=== PATIENT | male | born 1960 | race Caucasian/White ===

== ENCOUNTER 2025-02-15 10:51 | Outpatient (OUT) | payer MEDICARE, SELFPAY ==
--- OUTSIDE RECORDS SUMMARY | 2025-02-15 10:59 | XMS_ITS | Clinical Summary ---
Author Organization [facility] Address [address] [facility] [place] [address] Care Team Providers Care Student Union Consultant Name Role Phone Leanne Barraza ECOLOGICAL RISK ASSESSOR-STICKER HAND Unavailable + Source Comments The following information is NOT included in Care Everywhere downloads:Psychiatric notes, ECG results, Cardiac Rehab notes, Pulmonary Function notes, data from [employer] (includes but not limited toPregnancy data,audiograms, eye exams, pre-surgical evaluation notes, well-child exam data).[facility] Allergies Active Allergy Reactions Criticality Noted Date Comments Penicillins 03/25/2023 Patient unsure of reaction Medications atorvastatin (LIPITOR) 40 mg tablet Take 1 Tablet by mouth at bedtime. 90 Tablet 3 03/28/2023 Active finasteride (PROSCAR) 5 MG tablet Take 1 Tablet by mouth daily. 30 Tablet 3 03/29/2023 Active tamsulosin (FLOMAX) 0.4 MG capsule Take 1 Capsule by mouth daily. 30 Capsule 03/29/2023 Active alfuzosin (UROXATRAL) 10 MG tablet Take 10 mg by mouth daily. 05/16/2022 Active dutaseride (AVODART) 0.5 MG capsule Take 0.5 mg by mouth daily. 05/16/2022 Active Active Problems Problem Noted Date Diagnosed Date Hyperbilirubinemia 03/26/2023 Primary hypertension 03/26/2023 Benign prostatic hyperplasia without lower urinary tract symptoms 03/26/2023 Choledocholithiasis 03/26/2023 E coli bacteremia 03/26/2023 Cholangitis 03/26/2023 Biliary obstruction 03/25/2023 Immunizations Immunization Administration Dates Next Due Influenza, unspecified formulation (CVX=88) 04/05,05/25/2020 Pneumococcal polysaccharide 23 Valent (PPSV23) (CVX=33) 08/11/2019 Social History Tobacco Use Types Packs/Day Years Used Date Smoking Tobacco: Every Day Cigarettes 2 16.9 Started: 03/06/2008 Smokeless Tobacco: Never Tobacco Cessation:Counseling Given: Yes Sex and Gender Information Value Date Recorded Sex Assigned at Not on file Legal Sex Male 11:29 AM EST Gender Identity Not on file Sexual Orientation Not on file Last Filed Vital Signs Vital Sign Reading Time Taken Comments Blood Pressure 137/70 07/03/2023 10:56 AM EST Pulse 77 07/03/2023 10:56 AM EST Temperature 36.5 C (97.7 F) 07/03/2023 10:56 AM EST Respiratory Rate 16 07/03/2023 10:56 AM EST Oxygen Saturation 96% 07/03/2023 10:56 AM EST Inhaled Oxygen Concentration - - Weight 103.9 kg (229 lb) 07/03/2023 8:04 AM EST Height 182.9 cm (6') 07/03/2023 8:04 AM EST Body Mass Index 31.06 07/03/2023 8:04 AM EST Plan of Treatment Health Maintenance Due Date Last Done Comments Colonoscopy 1959 Hepatitis C Antibody 1977 Tdap Booster 1977 Hepatitis A (HAV) Vaccine (o ptional start 19+ years) 1978 Cholesterol 1994 CRC Screening 2004 Cologuard (Stool DNA) 2004 FIT 2004 Shingles (RZV) Vaccine (1 of 2) 2009 Hepatitis B (HBV) Vaccine (o ptional start 60+ years) 2019 Pneumococcal Vaccine(s) (50+ yrs) (2 of 2 - PCV) 08/10/2020 08/11/2019 Basic Metabolic Panel 03/27/2024 03/27/2023, 023 Abdominal Aortic Aneurysm Imaging 2024 COVID-19 Vaccine ( - season) 2025 05/10/2021, 10/04/2020, 08/09/2020 Influenza Vaccine (#1) 2025 04/16/2021, 2020 RSV vaccine (adult) (1 - 1-d ose 75+ series) 2034 Medical Devices Implanted Type Area Railroad Firer Device Identifier Shelf Expiration Date Model / Serial / Lot Stnt Sinan 10mm 8.5fr 40mm 194cm [id number] - [id number] Implanted:Qty: 1 on 03/27/2023 by Dilip Morales MD at INPATIENT DEPARTMENTS N/A: [employer] 01/16/2025 [id number] / / [id number] Procedures Procedure Name Priority Date/Time Associated Diagnosis Comments BASIC METABOLIC PANEL Routine 03/27/2023 8:59 AM EST from Last 3 Months or Most Recently Relevant to Health Maintenance Results * (ABNORMAL) BASIC METABOLIC PANEL (03/27/2023 8:59 AM EST) Glucose 124(H) 74 - 109 mg/dL 03/27/2023 9:40 AM EST [facility] Sodium 139 136 - 145 mmol/L 03/27/2023 9:40 AM EST [facility] Comment:Note updated referen ce ranges. Potassium 3.7 3.5 - 5.0 mmol/L 03/27/2023 9:40 AM EST [facility] Comment: Note updated reference ranges. Note updated reference ranges. Carbon Dioxide 25 21 - 31 mmol/L 03/27/2023 9:40 AM EST [facility] Comment:Note updated referen ce ranges. Chloride 105 98 - 107 mmol/L 03/27/2023 9:40 AM EST [facility] Comment:Note updated referen ce ranges. Blood Urea Nitrogen 24 7 - 25 mg/dL 03/27/2023 9:40 AM EST [facility] Comment:Note updated referen ce ranges. Creatinine 0.76 0.70 - 1.30 mg/dL 03/27/2023 9:40 AM EST [facility] Comment:Note updated referen ce ranges. Calcium 7.8(L) 8.6 - 10.3 mg/dL 03/27/2023 9:40 AM EST [facility] Comment:Note updated referen ce ranges. Anion Gap 13 10 - 20 03/27/2023 9:40 AM EST [facility] Estimated GFR (CKD-EPI) 101 >=60 mL/min/1. 73sqm 03/27/2023 9:40 AM EST [facility] Comment: 2020 CKD EPI Equation using Creatinine without Race Comment: Estimated glomerular filtration rate (eGFR) is calculated without a race coefficient. Values should be interpreted in the context of the patient's full clinical presentation. Reference: 1. Jaime C, Jordan M, Jacqui BAKER, et al.. A Unifying Approach for GFR Estimation: Recommendations of the NKF-ASN Task Force on Reassessing the Inclusion of Race in Diagnosing Kidney Disease. Portuguese Journal of Kidney Diseases 202;79(2):268- 88.e1. 2. N Engl J Med 2021 Vol. 385 Issue 19 Pages 7640-9589 Blood BLOOD SPECIMEN / Unknown Venipuncture / Unknown 03/27/2023 8:59 AM EST 03/27/2023 9:07 AM EST Enrrique Nevers DO [address] [facility] Final Result [facility] [address] [place] [address] from Last 3 Months or Most Recently Relevant to Health Maintenance Insurance [facility] MEDICAID Advance Directives * Full Code (Latest Code Status on File) Date Activated Date Inactivated Comments 03/25/2023 5:16 PM 03/28/2023 2:13 PM Question Answer Comments Documentation of decision pr ocess for this code status: Discussed with patient or surrogate. This is the code status chosen by the patient/surrogate. Care Teams Student Union Consultant Relationship Specialty Start Date End Date Leanne Barraza APRN-BECKY [address] [place] [address] [facility] 06/08/23
--- OUTSIDE RECORDS SUMMARY | 2025-02-15 10:59 | XMS_ITS | Clinical Summary ---
Author Organization [facility] Address [address] [place] [address] Phone Care Team Providers Care Boiler Shop Supervisor Name Role Phone Unavailable Primary Care Provider Unavailabl e Social History Tobacco Use Types Packs/Day Years Used Date Smoking Tobacco: Never Assessed Sex and Gender Information Value Date Recorded Sex Assigned at Not on file Legal Sex Male 5:20 AM EST Gender Identity Not on file Sexual Orientation Not on file Plan of Treatment Not on file
--- OUTSIDE RECORDS SUMMARY | 2025-02-15 10:59 | XMS_ITS | Clinical Summary ---
Author Organization [facility] Address [address] [place] [address] Care Team Providers Care Check Out Clerk Name Role Phone Pari Justin FINANCIAL RESERVE CLERK Unavailable [phone] Allergies Active Allergy Reactions Criticality Noted Date Comments Penicillins Anaphylaxis,Unknown High 03/23/2023 Patient unsure of reaction Medications atorvastatin (Lipitor) 40 MG tablet Refills(s) 0 3 Active tamsulosin (Flomax) 0.4 MG 24 hr capsule Take 0.4 mg by mouth in the morning. 3 Active rosuvastatin (Crestor) 20 MG tablet 1 (one) time each day at the same time Active metFORMIN XR (Glucophage-XR) 500 MG 24 hr tablet 4 Active lisinopril 20 MG tablet 1 (one) time each day at the same time Active finasteride (Proscar) 5 MG tablet Take 5 mg by mouth in the morning. 3 Active predniSONE (Deltasone) 20 MG tabletIndication s:Contact dermatitis, unspecified contact dermatitis type, unspecified trigger 3 pills days 1 and 2, 2 pills days 3 and 4, 1 pill day 5 and 6, 1/2 pill days 7 and 8. 13 tablet 4 Active Additional Information Patient not taking.Reported on 12/30/2023 Family History Medical History Relation Name Comments No Known Problems Father No Known Problems Mother Relation Name Status Comments Father Mother Social History Tobacco Use Types Packs/Day Years Used Date Smoking Tobacco: Every Day Cigarettes Smokeless Tobacco: Never Tobacco Cessation:Ready to Q uit: Not Asked; Counseling Given: Not Answered Sex and Gender Information Value Date Recorded Sex Assigned at Not on file Legal Sex Male 11:15 PM EDT Gender Identity Not on file Sexual Orientation Not on file Last Filed Vital Signs Vital Sign Reading Time Taken Comments Blood Pressure 116/62 12/30/2023 9:17 AM EDT Pulse 74 12/30/2023 9:17 AM EDT Temperature 35.7 C (96.3 F) 12/30/2023 9:17 AM EDT Respiratory Rate - - Oxygen Saturation 96% 12/30/2023 9:17 AM EDT Inhaled Oxygen Concentration - - Weight 107 kg (235 lb) 12/30/2023 9:17 AM EDT Height 182.9 cm (6') 08/02/2021 12:00 PM EDT Body Mass Index 31.87 08/02/2021 12:00 PM EDT Plan of Treatment Health Maintenance Due Date Last Done Comments CT Colonography 1959 Colonoscopy 1959 Colorectal Cancer Screening 1959 FIT-DNA 1959 FIT 1959 FOBT 1959 Sigmoidoscopy 1959 Pneumococcal Vaccine: 65+ Ye ars (2 of 2 - PCV) 08/10/2020 08/11/2019 Influenza Vaccine (#1) 2025 3, 04/16/2021, 05/25/2020 Insurance [employer] MEDICAID Care Teams Check Out Clerk Relationship Specialty Start Date End Date Pari Justin, [place] [address] [facility] [address] [place] [address] PCP - [facility] DRAFTER LANDSCAPE 05/06/24
--- OUTSIDE RECORDS SUMMARY | 2025-02-15 10:59 | XMS_ITS | Clinical Summary ---
Author Organization [facility] Address [address] [place] [address], [address] [place] [address] Care Team Providers Care Dumpster Driver Name Role Phone Cirilo Jenkins MD Primary Care Provider [phone] Social History Tobacco Use Types Packs/Day Years Used Date Smoking Tobacco: Never Assessed Sex and Gender Information Value Date Recorded Sex Assigned at Not on file Legal Sex Male 5:32 AM EST Gender Identity Not on file Sexual Orientation Not on file Plan of Treatment Not on file Insurance [facility] [place] Care Teams Dumpster Driver Relationship Specialty Start Date End Date Cirilo Jenkins MD [address] [place] [address] PCP - General Internal Medicine 03/25/23
--- NOTE | 2025-02-15 11:05 | ECG_ITS ---
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 Measurements Intervals [place] Rate: 55 P: 62 [place]: 188 QRS: 17 QRSD: 108 T: 51 QT: 394 QTc: 377 Interpretive Statements SINUS BRADYCARDIA POSSIBLE RIGHT VENTRICULAR CONDUCTION DELAY [RSR (QR) IN V1/V2] Borderline ECG No previous ECG available for comparison Electronically Signed On 02-15-2025 12:58:24 EDT by HERBERT FITZGERALD M.D.
--- NOTE | 2025-02-15 11:50 | PM.PRESUREVA ---
History of Present Illness History of Present Illness Chief complaint: BPH with obstruction and prostate lesion Narrative: Patient presents for presurgical testing. Please see HPI from Dr. Hackett dated February 10, 2025. Review of Systems ROS Narrative Please see ROS from Dr. Hackett dated February 10, 2025. [facility] History (Updated 02/15/25 @ 11:24 by Azul Pate NP) Prediabetes ?R73.03 - Prediabetes (ICD-10) Overactive bladder ?N32.81 - Overactive bladder (ICD-10) Incomplete bladder emptying ?R33.9 - Retention of urine, unspecified (ICD-10) Hypertension ?I10 - Essential (primary) hypertension (ICD-10) Hyperlipidemia ?E78.5 - Hyperlipidemia, unspecified (ICD-10) GERD (gastroesophageal reflux disease) ?K21.9 - Gastro-esophageal reflux disease without esophagitis (ICD-10) Calculus of gallbladder ?K80.20 - Calculus of gallbladder without cholecystitis without obstruction (ICD-10) BPH with obstruction/lower urinary tract symptoms ?N40.1 - Benign prostatic hyperplasia with lower urinary tract symptoms (ICD-10) ?N13.8 - Other obstructive and reflux uropathy (ICD-10) Lesion of prostate ?N42.9 - Disorder of prostate, unspecified (ICD-10) Surgical History (Updated 02/15/25 @ 11:11 by Azul Pate NP) History of cholecystectomy ?Z90.49 - Acquired absence of other specified parts of digestive tract (ICD-10) H/O cystoscopy ?Z98.890 - Other specified postprocedural states (ICD-10) Family History (Updated 02/15/25 @ 11:24 by Azul Pate NP) Other Family history of diabetes mellitus Family history of hypertension Family history of myocardial infarction Social History (Updated 02/15/25 @ 11:21 by Azul Pate NP) Within the past year, how often did you have a drink containing alcohol: never Score interpretation: A score less than 4 is consistent with normal alcohol consumption. Smoking status: Current every day smoker What tobacco products do you use: cigarettes Packs per day: 2 Years smoked: 15 Smoking pack-years: 30.00 Non-prescribed substance use: denies use and former substance user Non-prescribed substance use details: sober x19 years Previous occupational history: Retired Highest level of school completed/degree received: high school graduate Meds Home Medications and Allergies Home Medications ?Medication ?Instructions ?Recorded ?Confirmed ?Type alfuzosin 10 mg tablet,extended 10 mg PO DAILY 02/15/25 02/15/25 History release 24 hr atorvastatin 40 mg tablet 40 mg PO DAILY 02/15/25 02/15/25 History dutasteride 0.5 mg capsule 0.5 mg PO DAILY 02/15/25 02/15/25 History lisinopril 20 mg tablet 20 mg PO DAILY 02/15/25 02/15/25 History metformin 500 mg tablet,extended 500 mg PO DAILY 02/15/25 02/15/25 History release 24 hr Allergies Allergy/AdvReac Type Severity Reaction Status Date / Time Penicillins Allergy Anaphylaxis Verified 02/15/25 11:17 Exam Narrative Exam Narrative: Constitutional: Awake, alert, comfortable, well-appearing, nontoxic, interactive, vital signs as charted Head: Normocephalic, atraumatic Neck: Supple, normal appearance, normal range of motion, no meningeal signs, no lymphadenopathy Respiratory: No respiratory distress, breath sounds clear Cardiovascular: Regular rate and rhythm, strong and regular heart tones Abdomen: Nontender, normal bowel sounds, soft, no CVA tenderness Musculoskeletal: Normal gait, no swelling or edema Skin: No rashes or induration, no lesions, only visible skin inspected Neuro: No neurological deficits, normal sensation Psychiatric: Oriented ?3, normal affect Assessment and Plan Assessment and Plan (1) Lesion of prostate: (2) BPH with obstruction/lower urinary tract symptoms: Plan Cystoscopy/prostate lesion removal and TURP scheduled with Dr. Hackett February 25, 2025.
[2025-02-15 12:06] LABS: Hematocrit 41.8 % (42.0-54.0); Hemoglobin 14.2 g/dL (14.0-18.0); Immature Granulocytes Abs Auto 0.05 10^3/uL (0.00-0.03); Immature Granulocytes Pct Auto 0.6 % (0.0-0.5); Lymphocytes Absolute Auto 1.3 10^3/uL (1.2-3.8); Mean Corpuscular HGB Conc 34.0 g/dL (29.9-35.2); Mean Corpuscular Hemoglobin 29.6 pg (25.9-34.0); Mean Corpuscular Volume 87.3 fL (80.0-94.0); Platelet Count 246 10^3/uL (150-450); Red Blood Count 4.79 10^6/uL (4.70-6.10); White Blood Count 9.0 10^3/uL (4.0-11.0)
[2025-02-15 12:22] LABS: INR 1.02; Partial Thromboplastin Time 28.2 sec (22.3-36.2); Prothrombin Time 10.8 sec (9.0-11.6)
[2025-02-15 12:25] LABS: Anion Gap 12.9; Blood Urea Nitrogen 13.0 mg/dL (7.0-18.0); Calcium 9.2 mg/dL (8.5-10.1); Carbon Dioxide 26.4 mmol/L (21.0-32.0); Chloride 105 mmol/L (98-107); Estimated GFR (African America >60 (>=60 mL/min/1.73m^2); Estimated GFR (Non-African Ame >60 (>=60 mL/min/1.73m^2); Glucose 104 mg/dL (74-106); Potassium 4.3 mmol/L (3.5-5.1); Sodium 140 mmol/L (136-145)
== END 2025-02-15 10:52 | disposition home or self-care (01) ==
PROVIDERS: Visit Provider Urology
DX: Z01.810 Encounter for preprocedural cardiovascular examination (principal); Z01.812 Encounter for preprocedural laboratory examination; Z01.818 Encounter for other preprocedural examination; N42.89 Other specified disorders of prostate
CPT/HCPCS: 36415; 80048; 85025; 85610; 85730; 93005; G0463

== ENCOUNTER 2025-02-25 09:34 | Day surgery (SDC) | payer MEDICARE, SELFPAY ==
[2025-02-15 11:41] VITALS: BP 114/75; PULSE 66; TEMP 36.4; O2SAT 96; BMI 31.6
[2025-02-25] VITALS (15 sets, daily range): BP systolic 87–126; BP diastolic 47–75; PULSE 55–92; TEMP 36.3–36.9; O2SAT 92–99; BMI 31.1
--- OUTSIDE RECORDS SUMMARY | 2025-02-25 09:37 | XMS_ITS | Clinical Summary ---
Author Organization [facility] Address [address] [place] [address] Care Team Providers Care Electricians Top Helper Name Role Phone Pari Justin CDL SERVICE TECHNICIAN Unavailable [phone] Allergies Active AllergyReactionsCriticalityNoted DateCommentsPenicillinsAnaphylaxis, YqwsahpQixt35/18/2023 Patient unsure of reaction Medications MedicationSigDispense QuantityRefillsLast FilledStart DateEnd DateStatus atorvastatin (Lipitor) 40 MG tablet Refills(s) ctive tamsulosin (Flomax) 0.4 MG 24 hr capsule Take 0.4 mg by mouth in the morning.03/29/2023ctive rosuvastatin (Crestor) 20 MG tablet 1 (one) time each day at the same timeActive metFORMIN XR (Glucophage-XR) 500 MG 24 hr tablet 11/24/2023ctive lisinopril 20 MG tablet 1 (one) time each day at the same timeActive finasteride (Proscar) 5 MG tablet Take 5 mg by mouth in the morning.03/29/2023ctive predniSONE (Deltasone) 20 MG tablet Indications:Contact dermatitis, unspecified contact dermatitis type, unspecified trigger3 pills days 1 and 2, 2 pills days 3 and 4, 1 pill day 5 and 6, 1/2 pill days 7 and 8. 13 tablet 12/24/2023ctive Additional Information Patient not taking.Reported on 12/30/2023 Family History Medical HistoryRelationNameCommentsNo Known ProblemsFatherNo Known Problems MotherRelationNameStatusCommentsFatherMother Social History Tobacco UseTypesPacks/DayYears UsedDateSmoking Tobacco: Every DayCigarettes Smokeless Tobacco: Never Tobacco Cessation:Ready to Q uit: Not Asked; Counseling Given: Not Answered Sex and Gender InformationValueDate RecordedSex Assigned at BirthNot on file Legal GgtPbrl22 11:15 PM EDTGender IdentityNot on fileSexual Orientation Not on file Last Filed Vital Signs Vital SignReadingTime TakenCommentsBlood Iutoeelx758/6208 9:17 AM EDT Vusfc197512/30/2023 9:17 AM YSODmmpjhwzkda21.7 ??C (96.3 ??F)12/30/2023 9:17 AM EDTRespiratory Rate--Oxygen Fuyfsnligy26%12/30/2023 9:17 AM EDTInhaled Oxygen Concentration--Dubooe418 kg (235 lb)12/30/2023 9:17 AM DHCMdykbs703.9 cm (6') 08/02/2021 12:00 PM EDTBody Mass Index31.8708/02/2021 12:00 PM EDT Plan of Treatment Health MaintenanceDue DateLast DoneCommentsCT Sworzqjvwwjm14/06/1960Colonoscopy 1959Colorectal Cancer Ednkuwjwg75/06/1960FIT-DNA1959FIT1959 FOBT1959 1705Zwwjjwbkkdhey91/06/1960Pneumococcal Vaccine: 65+ Years (2 of 2 - PCV)/11/2019Influenza Vaccine (#1), 04/16/2021, 05/25/2020 Insurance Care Teams Team MemberRelationshipSpecialtyStart DateEnd Date Pari Justin NP [address] [place] [address] [facility]05/06/24
--- OUTSIDE RECORDS SUMMARY | 2025-02-25 09:38 | XMS_ITS | Clinical Summary ---
Author Organization [facility] Address [address] [facility] [place] [address] Phone Care Team Providers Care Network Cabler Name Role Phone Unavailable Primary Care Provider Unavailabl e Social History Tobacco UseTypesPacks/DayYears UsedDateSmoking Tobacco: Never AssessedSex and Gender InformationValueDate RecordedSex Assigned at BirthNot on fileLegal Sex Male03/31/2022 5:20 AM ESTGender IdentityNot on fileSexual OrientationNot on file Plan of Treatment Not on file
--- OUTSIDE RECORDS SUMMARY | 2025-02-25 09:38 | XMS_ITS | Clinical Summary ---
Author Organization [facility] Address [address] [place] [address], [address] [place] [address] Care Team Providers Care Pediatric Allergist Name Role Phone Cirilo Jenkins MD Primary Care Provider [phone] Social History Tobacco UseTypesPacks/DayYears UsedDateSmoking Tobacco: Never AssessedSex and Gender InformationValueDate RecordedSex Assigned at BirthNot on fileLegal Sex Male03/25/2023 5:32 AM ESTGender IdentityNot on fileSexual OrientationNot on file Plan of Treatment Not on file Insurance Care Teams Team MemberRelationshipSpecialtyStart DateEnd Date Cirilo Jenkins MD [address] [place] [address] PCP - GeneralInternal Qhdiweek31/20/23
--- OUTSIDE RECORDS SUMMARY | 2025-02-25 09:38 | XMS_ITS | Clinical Summary ---
Author Organization [facility] Address [address] [facility] [place] [address] Care Team Providers Care Wet Wash Assembler Name Role Phone Leanne Barraza SOLAR CONSULTANT-SUPERINTENDENT LOCAL Unavailable + Source Comments The following information is NOT included in Care Everywhere downloads:Psychiatric notes, ECG results, Cardiac Rehab notes, Pulmonary Function notes, data from SmartForms (includes but not limited toPregnancy data,audiograms, eye exams, pre-surgical evaluation notes, well-child exam data).[facility] Allergies Active AllergyReactionsCriticalityNoted AeobOjifrzdpHwwdryjndko98/20/2023 Patient unsure of reaction Medications MedicationSigDispense QuantityRefillsLast FilledStart DateEnd DateStatus atorvastatin (LIPITOR) 40 mg tablet Take 1 Tablet by mouth at bedtime. 90 Tablet ctive finasteride (PROSCAR) 5 MG tablet Take 1 Tablet by mouth daily. 30 Tablet ctive tamsulosin (FLOMAX) 0.4 MG capsule Take 1 Capsule by mouth daily. 30 Capsule 03/29/2023ctive alfuzosin (UROXATRAL) 10 MG tablet Take 10 mg by mouth daily.05/16/2022ctive dutaseride (AVODART) 0.5 MG capsule Take 0.5 mg by mouth daily.05/16/2022ctive Active Problems ProblemNoted DateDiagnosed TajeLwjxaomcizhaqosvry04/21/2023rimary hypertension 03/26/2023enign prostatic hyperplasia without lower urinary tract symptoms 03/26/20236516Mwvfysgsfnoqsrqgpbb38/21/2023E coli /21/2023holangitis 03/26/2023iliary rlpyjyapcli37/20/2023 Immunizations ImmunizationAdministration DatesNext DueInfluenza, unspecified formulation (CVX=88)04/16/2021,1Pneumococcal polysaccharide 23 Valent (PPSV23) (CVX=33)08/11/2019 Social History Tobacco UseTypesPacks/DayYears UsedDateSmoking Tobacco: Every QjvGcktmzgmns810 Started: 03/06/2008Smokeless Tobacco: Never Tobacco Cessation:Counseling Given: Yes Sex and Gender InformationValueDate RecordedSex Assigned at BirthNot on file Legal KxoEzsl04/20/2023 11:29 AM ESTGender IdentityNot on fileSexual Orientation Not on file Last Filed Vital Signs Vital SignReadingTime TakenCommentsBlood Cyzyommy249/70007/03/2023 10:56 AM EST Yziee968707/03/2023 10:56 AM QSYJacijvmfvam74.5 ??C (97.7 ??F)07/03/2023 10:56 AM ESTRespiratory Dbcs034507/03/2023 10:56 AM ESTOxygen Ubhuohmmfv02%07/03/2023 10:56 AM ESTInhaled Oxygen Concentration--Ggsspx279.9 kg (229 lb)07/03/2023 8:04 AM YOTVrziam304.9 cm (6')07/03/2023 8:04 AM ESTBody Mass Index31.0607/03/2023 8:04 AM EST Plan of Treatment Health MaintenanceDue DateLast MhwaWjlmktezDxeqzmrbkwj61/06/1960Hepatitis C Hxxogowi35/06/1978Tdap Mmzqhas1306/11/1977Hepatitis A (HAV) Vaccine (optional start 19+ years)06/11/19783534Vpxqdsyovhx09/06/1995CRC Hnvjecslx48/06/2005Cologuard (Stool DNA)2004FIT2004Shingles (RZV) Vaccine (1 of 2)2009 Hepatitis B (HBV) Vaccine (optional start 60+ years)2019Pneumococcal Vaccine(s) (50+ yrs) (2 of 2 - PCV)Basic Metabolic Panel , 3Abdominal Aortic Aneurysm Hnmlxrj1006/11/2024 COVID-19 Vaccine ( season)/09/2021, 10/04/2020, 08/09/2020Influenza Vaccine (#1)512/04/2021, 05/25/2020SV vaccine (adult) (1 - 1-dose 75+ series)2034 [employer] Devices ImplantedTypeAreaManufacturerDevice IdentifierShelf Expiration DateModel / Serial / LotStnt Sinan 10mm 8.5fr 40mm 194cm Ea1 [id number] - [id number] Implanted:Qty: 1 on 03/27/2023 by Dilip Morales MD at INPATIENT DEPARTMENTSN/A: [employer] Ftnbbvrkbk08/13/[id number] / / [id number] Procedures Procedure NamePriorityDate/TimeAssociated DiagnosisCommentsBASIC METABOLIC PANEL Ixtkshb6403/27/2023 8:59 AM EST from Last 3 Months or Most Recently Relevant to Health Maintenance Results * (ABNORMAL) BASIC METABOLIC PANEL (03/27/2023 8:59 AM EST)ComponentValueRef RangeTest MethodAnalysis TimePerformed AtPathologist CkuzusflwQamgnvd324(H)74 - 109 mg/dL03/27/2023 9:40 AM [facility] DSKXYWCKGLYtkstz631498 - 145 mmol/L105/27/2022 9:40 AM [facility] PATHOLOG[facility] LABORATORYComment:Note updated reference ranges.Potassium3.73.5 - 5.0 mmol/L105/27/2022 9:40 AM [facility] PATHOLOG[facility] LABORATORYComment: Note updated reference ranges. Note updated reference ranges. Carbon Yzyngwm1583 - 31 mmol/L105/27/2022 9:40 AM [facility] Comment:Note updated reference ranges.Gvbkkama82421 - 107 mmol/L105/27/2022 9:40 AM [facility] PATHOLOG[facility] LABORATORYComment:Note updated reference ranges.Blood Urea Aosdrizk299 - 25 mg/dL03/27/2023 9:40 AM [facility] PATHOLOG[facility] LABORATORYComment:Note updated reference ranges.Creatinine0.760.70 - 1.30 mg/dL03/27/2023 9:40 AM EST [facility] PATHOLOG[facility] LABORATORYComment:Note updated reference ranges.Calcium7.8(L)8.6 - 10.3 mg/dL03/27/2023 9:40 AM [facility] PATHOLOG[facility] LABORATORYComment:Note updated reference ranges.Anion Zpd3049 - 9:40 AM [facility] PATHOLOG[facility] LABORATORYEstimated GFR (CKD-EPI)101>=60 mL/min/1.42ndf6505/27/2022 9:40 AM [facility] PATHOLOGY LABORATORYComment: 2020 CKD EPI Equation using Creatinine without Race Comment: ??Estimated glomerular filtration rate (eGFR) is calculated without a race coefficient. Values should be interpreted in the context of the patient's full clinical presentation. Reference: 1. Jaime C, Jordan M, Jacqui BAKER, et al.. A Unifying Approach for GFR Estimation: Recommendations of the NKF-ASN Task Force on Reassessing the Inclusion of Race in Diagnosing Kidney Disease. AmericanJournal of Kidney Diseases 2021;79(2):268-88.e1. 2. N Engl J Med 1 Vol. 385 Issue 19 Pages 0365-0308 Specimen (Source)Anatomical Location / LateralityCollection Method / Volume Collection TimeReceived TimeBloodBLOOD SPECIMEN / UnknownVenipuncture / Unknown 03/27/2023 8:59 AM EST03/27/2023 9:07 AM EST Narrative Authorizing ProviderResult TypeResult StatusBenjamin Nevers DO98 GENERAL LAB Final ResultPerforming OrganizationAddressCity/State/ZIP CodePhone Number [facility] [address] [place] [address] from Last 3 Months or Most Recently Relevant to Health Maintenance Insurance Advance Directives * Full Code (Latest Code Status on File) Date ActivatedDate PomjutilpdbHlvxlugv81/20/2023 5:16 PM03/28/2023 2:13 PM QuestionAnswerCommentsDocumentation of decision process for this code status:* Discussed with patient or surrogate.?? This is the code status chosen by the patient/surrogate. Care Teams Team MemberRelationshipSpecialtyStart DateEnd Date Leanne Barraza APRN-BECKY [address] [place] [address] APNGastroenterology2
[2025-02-25] MEDS: LEVOFLOXACIN 500 MG/100 ML-D5W PREMIX 100 MG IV (11:49)
--- NOTE | 2025-02-25 12:48 | PM.URSON ---
Urology Surgery Operative Note Operative Note Procedure Date: 02/25/25 Time Out Performed: yes Pre-op Diagnosis: 1. Prostate tumor. 2. BPH with LUTS Post-op Diagnosis: same as pre-op Procedures performed: 1. Cystoscopy. 2. Transurethral resection of prostate lesion. 3. Transurethral resection of the prostate. Anesthesia: GETA Primary Surgeon: Anjel Hackett Complications: None Estimated blood loss (mL): 10 Findings: 1. Prostate tumor just proximal to the veru. 2. Purulence pockets in right lateral lobe. Specimens: 1. Prostate tumor sent separately. 2. Prostate chips. Drains: 22 [place] three-way coud? Powell to traction and CBI. Indications for Procedures: This gentleman has BPH with LUTS refractory to medications. 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 He now presents for resection of his prostate tumor and TURP. He has signed an informed consent after risks were explained. Some of these risks include bleeding, infection, anesthesia, urinary incontinence both temporary and permanent, retrograde ejaculation, erectile dysfunction and possible need for other operations to name a few. Detailed description of Procedure: The patient was brought to the operating room and placed on the operating room table in the supine position. SCDs were placed on the lower extremities and turned on and functioning during the entire case. Timeout was done by all parties in the room. We all agreed upon the patient's identification and the planned procedures for this patient. Genn. anesthesia was then administered. The patient was then repositioned into the modified dorsal lithotomy position. All pressure points were satisfactorily padded. Genitalia were sterilely prepped and draped in usual fashion. I started by passing a 26 [place] Olympus resectoscope with a standard bipolar loop electrode per urethra and into the bladder. I brought the scope back to the veru and I identified the tumor just proximal to the veru. I decided to resect the median lobe down to the bladder neck level. This then allowed me a more straight on access to the tumor. I resected the tumor and this was extracted and sent separately labeled prostate tumor. I then continued on with and resected the left lateral lobe from the bladder neck to the veru level. The right lateral lobe and the anterior tissue were resected similarly. From the right lateral lobe we unroofed purulent pockets. The apex was then opened up. The resection bed was coagulated. The Elick was used to get all the prostate chips out of the bladder and these were sent for permanent sections. With the scope at the apex the prostatic urethra and bladder neck were now wide open. There was no bleeding. There were no chips remaining in the bladder. The scope was then removed. I then placed a 22 [place] three-way coud? Powell in the bladder. It was irrigated with a Keyonna syringe to verify correct placement. 30 cc of fluid was placed in the balloon. It was taped to traction and CBI was started. It irrigated to a clear color. The anesthetic was reversed. He was then transferred to a [place] bed and wheeled to PACU in stable condition. Urinary Catheter Management Urinary Catheter Management Urethral: Cath placed during this visit: no 3-way Urethral: Cath placed during this visit: no
--- NOTE | 2025-02-25 13:14 | PC.NURSE ---
PATIENT CONTINUALLY COUGHING AND SPITTING UP MUCOUS SINCE ARRIVAL TO PACU
[2025-02-25] MEDS: SOLIFENACIN SUCCINATE 10 MG TABLET PO (13:21)
[2025-02-25] MEDS: 0.9 % SODIUM CHLORIDE 1,000 ML 80 ML IV (13:23)
[2025-02-25] MEDS: SODIUM CHLORIDE IRRIG SOLUTION 3,000 ML 3000 ML IRR ×11 (14:09→23:24)
[2025-02-26] MEDS: SODIUM CHLORIDE IRRIG SOLUTION 3,000 ML 3000 ML IRR (01:22)
[2025-02-26] MEDS: 0.9 % SODIUM CHLORIDE 1,000 ML 80 ML IV (02:08)
[2025-02-26 05:00] VITALS: BP 130/68; PULSE 59; TEMP 36.8; O2SAT 92
[2025-02-26 07:51] VITALS: BP 127/72; PULSE 62; O2SAT 94
[2025-02-26] MEDS: LEVOFLOXACIN IN DEXTROSE 5 % 500 MG/100 ML PREMIX 100 MG IV (08:47)
[2025-02-26] MEDS: ATORVASTATIN CALCIUM 40 MG TABLET PO (08:50)
[2025-02-26] MEDS: SOLIFENACIN SUCCINATE 10 MG TABLET PO (08:50)
[2025-02-26] MEDS: METFORMIN HCL 500 MG TAB.ER.24H PO (08:51)
[2025-02-26] MEDS: ALFUZOSIN HCL 10 MG TAB.ER.24H PO (08:51)
[2025-02-26] MEDS: LISINOPRIL 20 MG TABLET PO (08:51)
[2025-02-26] MEDS: DUTASTERIDE 0.5 MG CAPSULE PO (08:54)
== END 2025-02-26 10:54 | disposition home or self-care (01) ==
LOC: SURGOUT 13:29 → MS 13:29
PROVIDERS: Visit Provider Urology
PROC: (CPT 52601; principal; 2025-02-25 11:10)
DX: N40.1 Benign prostatic hyperplasia with lower urinary tract symptoms (principal); N42.9 Disorder of prostate, unspecified; K21.9 Gastro-esophageal reflux disease without esophagitis; E78.5 Hyperlipidemia, unspecified; F19.11 Other psychoactive substance abuse, in remission; I10 Essential (primary) hypertension; E11.9 Type 2 diabetes mellitus without complications; N32.81 Overactive bladder; Z90.49 Acquired absence of other specified parts of digestive tract; F17.210 Nicotine dependence, cigarettes, uncomplicated; Z79.84 Long term (current) use of oral hypoglycemic drugs
CPT/HCPCS: 52601; 36415; 82948; 88305; 96365; J1100; J2250; J2371; J2405; J2704; J3010